=== PATIENT | male | born 1930 | race Caucasian/White ===

== ENCOUNTER → 2017-11-07 | Outpatient (CLI) | payer OTHER, MEDICARE | LOC: FIMAGING 18:20 | PROVIDERS: ATTEND Physician Assistant | DX: M48.062 Spinal stenosis, lumbar region with neurogenic claudication (principal); M48.07 Spinal stenosis, lumbosacral region; M75.111 Incomplete rotator cuff tear or rupture of right shoulder, not specified as traumatic; M75.21 Bicipital tendinitis, right shoulder; M19.011 Primary osteoarthritis, right shoulder; M85.611 Other cyst of bone, right shoulder; N32.89 Other specified disorders of bladder ==

== ENCOUNTER → 2018-03-07 | Outpatient (CLI) | payer OTHER, MEDICARE | LOC: FIMAGING 09:37 | PROVIDERS: ATTEND Physician Assistant | DX: M25.521 Pain in right elbow (principal) ==

== ENCOUNTER 2018-06-29 10:48 | Emergency (ER) | payer OTHER, MEDICARE ==
[2018-06-29 11:37] LABS: PLATELET COUNT 170 10^3/uL (150-400)
--- NOTE | 2018-06-29 11:37 | EDPHY ---
H & P Stated Complaint: upper back pain woke pt up this am now resolved Time Seen by Provider: 06/29/18 11:14 - Personal History Tetanus Vaccine Date: 2011 - Medical/Surgical History Hx Asthma: No Hx Chronic Respiratory Disease: No Hx Diabetes: No Hx Cardiac Disease: No Hx Renal Disease: No Hx Cirrhosis: No Hx Alcoholism: No Hx HIV/AIDS: No Hx Splenectomy or Spleen Trauma: No Other PMH: chronic back pain. L3-5 surgery 2007 - Social History Smoking Status: Never smoked Constitutional: Initial Vital Signs Temperature (C) 36.7 C 06/29/18 10:54 Heart Rate 64 06/29/18 10:54 Respiratory Rate 16 06/29/18 10:54 Blood Pressure 148/72 H 06/29/18 10:54 O2 Sat (%) 97 06/29/18 10:54 O2 Delivery Mode Room Air Allergies/Adverse Reactions: No Known Allergies Allergy (Unverified 08/28/12 11:55) Home Medications: Medication Instructions Recorded NK [No Known Home Meds] 06/29/18 Medical Decision Making - Diagnostics Imaging Results: Imaging Impressions Chest X-Ray 06/29/18 11:31 Impression: 1. Query airways disease. 2. Degenerative changes are seen involving the shoulders. Imaging: I viewed and interpreted images myself ED Course/Re-evaluation: CHIEF COMPLAINT: Back pain HISTORY OF PRESENT ILLNESS: The patient is an 88 y/o male with a history of chronic back pain and spinal fusions who complains of severe left lateral and upper back pain that woke him from sleep around 06:00, about 5.5 hours ago. Pain was 8/10 at onset and nothing made his it better or worse. He took 2 baby aspirins without any change. His pain slowly receded and dissipated completely about 2 hours after onset. He denies associated shortness of breath, chest pain , nausea, vomiting, or other complaints. No cardiac history. REVIEW OF SYSTEMS: A comprehensive 10 system review of systems is otherwise negative aside from elements mentioned in the history of present illness and medical decision making. PHYSICAL EXAM: HR, BP, O2 Sat, RR. Temp noted General Appearance: Alert, well hydrated, appropriate, and non-toxic appearing. Head: Atraumatic without scalp tenderness or obvious injury Eyes: Pupils equal, round, reactive to light and accommodation, EOMI, no trauma , no injection. Nose: Atraumatic, no rhinorrhea, clear. Throat: Mucus membranes moist. Neck: Supple, non-tender, no lymphadenopathy. Respiratory: No retractions, no distress, no wheezes, and no accessory muscle use. Lungs are clear to auscultation bilaterally. Cardiovascular: Regular rate and rhythm, no murmurs, rubs, or gallops. Good capillary refill all extremities. Gastrointestinal: Abdomen is soft, non-tender, non-distended, no masses, no rebound, no guarding, no peritoneal signs. Musculoskeletal: Normal active ROM of all extremities, atraumatic. Neurological: Alert, appropriate, and interactive. Nonfocal. Skin: No rashes, good turgor, no nodules on palpation. PAST MEDICAL HISTORY: Arthritis, chronic back pain PAST SURGICAL HISTORY: Lumbar fusion, cervical fusion SOCIAL HISTORY: Lives in [place]. Retired. PCP: Dr. Pickering. DIAGNOSTICS/PROCEDURES/CRITICAL CARE TIME: The 12 lead EKG was interpreted by myself. Sinus mechanism, no ischemia. See hard copy and/or "tracemaster" electronic copy for interpretation. Chest x-ray: no infiltrate, fracture DIFFERENTIAL DIAGNOSIS: The differential diagnosis for the patient's back pain included but was not limited to musculoskeletal pain, epidural abscess, herniated disk, spinal fracture, and intra-abdominal causes including urinary system. MEDICAL DECISION MAKING: This is an 88 y/o male with a history of lumbar and spinal fusions who presents after a transient 2-hour episode of left lateral and upper back pain that woke him from sleep. Pain slowly dissipated and he is now completely back to baseline. Exam is normal. Doubt cardiac etiology and suspect this is musculoskeletal in a nature. Plan for IV, labs, EKG, chest x-ray. Age-adjusted d-dimer is negative. Labs unremarkable. EKG normal. Chest x-ray shows no obvious etiology for his transient pain, though degenerative changes in shoulders noted. Reevaluated patient and discussed findings. He will be discharged home with standard care and follow up instructions. Return precautions discussed. He is comfortable with this plan. - Data Points Laboratory Results: Laboratory Results 06/29/18 11:10 06/29/18 11:10 06/29/18 06/29/18 06/29/18 11:10 11:10 11:10 WBC 6.05 10^3/uL 10^3/uL (3.80-9.50) RBC 3.69 10^6/uL L 10^6/uL (4.40-6.38) Hgb 12.6 g/dL L g/dL (13.7-17.5) Hct 36.1 % L % (40.0-51.0) MCV 97.8 fL fL (81.5-99.8) MCH 34.1 pg pg (27.9-34.1) MCHC 34.9 g/dL g/dL (32.4-36.7) RDW 12.4 % % (11.5-15.2) Plt Count 170 10^3/uL 10^3/uL (150-400) MPV 9.2 fL fL (8.7-11.7) Neut % (Auto) 67.7 % % (39.3-74.2) Lymph % (Auto) 19.2 % % (15.0-45.0) [place] % (Auto) 8.1 % % (4.5-13.0) Eos % (Auto) 4.0 % % (0.6-7.6) Baso % (Auto) 0.7 % % (0.3-1.7) Nucleat RBC Rel Count 0.0 % % (0.0-0.2) Absolute Neuts (auto) 4.10 10^3/uL 10^3/uL (1.70-6.50) Absolute Lymphs (auto) 1.16 10^3/uL 10^3/uL (1.00-3.00) Absolute Monos (auto) 0.49 10^3/uL 10^3/uL (0.30-0.80) Absolute Eos (auto) 0.24 10^3/uL 10^3/uL (0.03-0.40) Absolute Basos (auto) 0.04 10^3/uL 10^3/uL (0.02-0.10) Absolute Nucleated RBC 0.00 10^3/uL 10^3/uL (0-0.01) Immature Gran % 0.3 % % (0.0-1.1) Immature Gran # 0.02 10^3/uL 10^3/uL (0.00-0.10) D-Dimer 0.52 ug/mLFEU H ug/mLFEU (0.00-0.50) Sodium 142 mEq/L mEq/L (135-145) Potassium 3.7 mEq/L mEq/L (3.5-5.2) Chloride 105 mEq/L mEq/L (97-110) Carbon Dioxide 28 mEq/l mEq/l (22-31) Anion Gap 9 mEq/L mEq/L (6-14) BUN 27 mg/dL H mg/dL (7-23) Creatinine 1.2 mg/dL mg/dL (0.7-1.3) Estimated GFR 57 Glucose 107 mg/dL H mg/dL (70-100) Calcium 9.4 mg/dL mg/dL (8.5-10.4) Departure - Departure Disposition: Home, Routine, Self-Care Clinical Impression: Back pain Qualifiers: Back pain location: thoracic back pain Chronicity: chronic Back pain laterality : left Qualified Code(s): M54.6 - Pain in thoracic spine Condition: Good Instructions: Back Pain (ED) Additional Instructions: Follow up with your primary care provider this week for unimproved symptoms. Return to the ED for worsening of condition. Referrals: Tia Pickering MD [Primary Care Provider] - As per Instructions Report Scribed for: Leon Noel Report Scribed by: Nory Bose Date of Report: 06/29/18 Time of Report: 11:40
[2018-06-29 13:11] VITALS: BP 171/104
--- NOTE | 2018-06-29 14:18 | CPEKG ---
Test Reason : OPEN Blood Pressure : / mmHG Vent. Rate : 060 BPM Atrial Rate : 060 BPM P-R Int : 165 ms QRS Dur : 109 ms QT Int : 409 ms P-R-T Axes : 047 041 039 degrees QTc Int : 409 ms Sinus rhythm Confirmed by Leon Noel ([id number]) on 06/29/2018 2:18:02 PM Referred By: Confirmed By:Leon Noel
== END 2018-06-29 13:11 | disposition home or self-care (01) ==
DX: M54.6 Pain in thoracic spine (principal); G89.29 Other chronic pain; M19.012 Primary osteoarthritis, left shoulder; M19.011 Primary osteoarthritis, right shoulder; Z98.1 Arthrodesis status

== ENCOUNTER → 2018-11-02 | Outpatient (CLI) | payer OTHER, MEDICARE | LOC: FIMAGING 10:53 | PROVIDERS: ATTEND Physician Assistant | DX: G31.9 Degenerative disease of nervous system, unspecified (principal); R90.82 White matter disease, unspecified; R41.81 Age-related cognitive decline | CPT/HCPCS: 70551-PN ==

== ENCOUNTER 2018-11-16 10:47 | Emergency (ER) | payer OTHER, MEDICARE ==
[2018-11-16] MEDS ORDERED: FLUORESCEIN SODIUM 1 MG STRIP OP ONE (10:59)
[2018-11-16] MEDS ORDERED: PROPARACAINE 0.5% 15 ML OPHT DROP ONE (11:00)
--- NOTE | 2018-11-16 11:48 | EDPHY ---
General - History Smoking Status: Never smoked Time Seen by Provider: 11/16/18 11:01 Narrative: CLINICAL IMPRESSION: Dizziness, episodic lightheadedness ASSESSMENT/PLAN: 88-year-old male presents to the emergency department with approximately 3 hr of reported dizziness, episodic lightheadedness, and unsteadiness on his feet. Patient has been taking 2 ophthalmic eyedrops for an upcoming cataract surgery, states he may have accidentally over used the drops and believes his symptoms are due to this. He has no associated headache, vertigo, acute vision changes or eye pain, hearing changes, unilateral weakness, word-finding difficulties or slurred speech. NIH score of 0, no focal neuro deficits. No ataxia appreciated on ambulation. I have explained to the patient that I do not believe there is enough systemic absorption of his eyedrops to cause such symptoms and this was confirmed with pharmacy and on-call Ophthalmology. I have expressed my concern that his dizziness may be unrelated to his eyedrops and that I cannot further evaluate this without additional workup to include but not limited to EKG, cardiac enzymes, laboratory evaluation, chest x-ray, and CT scan with possible CT angiogram. Patient states "it is a waste of time for me to be evaluated because I do not believe this is my heart, a stroke or TIA". I have explained to the patient that should his symptoms be consistent with a TIA this may place him at risk for additional TIA's or CVA and that it may be fatal. He is also aware that I cannot rule out cardiovascular causes as a source of his dizziness without workup. Patient continues to refuse further workup in the ED. I have spoken with the on-call mechanical design engineer facilities with Dr. Bender office and patient has an appointment there tomorrow at 11:00 a.m.. I requested he continue his antibiotic drops as recommended by mechanical design engineer facilities, and request additional refills at his appointment tomorrow. Low threshold for return to ED sooner as discussed in person with the patient and his son and discharge papers. Case reviewed with Dr. Frost. DIFFERENTIAL DX: Dizziness including but not limited to peripheral and central causes of vertigo , orthostatic causes including dehydration, and blood loss. ED PROCEDURES: See lab and/or imaging results below ED COURSE: 11:25 a.m.: Case discussed with Dr. Frost. I also spoke with Ophthalmology on -call for [facility]. Patient is convinced that his dizziness and balance issues are secondary to using too many eyedrops. He was reassured that the systemic amount of eyedrops is minimal and that this is very unlikely side effect. Ophthalmology agrees. They did however recommend the patient continue the eyedrops up until surgery and discuss refills with Dr. Bender. Patient is refusing additional workup for dizziness and lightheadedness including CT, EKG, cardiac enzymes, and lab work. Had a long discussion with the patient and his son regarding differential diagnosis for dizziness as listed above. I explained that should this have been a mini stroke or other cardiac abnormality I am unable to further characterize or diagnosis without additional workup. Patient continues to decline. He will follow up tomorrow with his mechanical design engineer facilities for preop appointment at 11:00 a.m.. CHIEF COMPLAINT: Dizziness, episodic lightheadedness, questionable overuse of eyedrops HPI: 88-year-old male who appears younger than stated age presents to the emergency department with complaints of 3 hr of dizziness, feeling off balance, feeling as though "I was walking like a snake this morning", and lightheaded. Patient reports symptoms began 830 when he was trying to make breakfast. He has been taking ketorolac and gatifloxacin ophthalmic drops for upcoming cataract surgery in [address] Bender. Patient admits that he has not been effective at getting the drops into his eyes and thinks he may have "over use the drops". He brings bottles with him which do still have fluid in them. He has no complaints of vision loss, eye pain, discharge, redness. He reports no headache, vertigo, nausea or vomiting, neck pain, chest pain, shortness of breath abdominal pain. He has not been ill recently. He reports he had MRI of his brain approximately 3 weeks ago due to cognitive changes and was told " there were changes due to age but nothing acute". He has an appointment this week with Neurology. No reports of prior TIA or CVA. No reported cardiovascular disease. Patient normally walks without a cane or walker and his son who is with him reports he was acting completely normal on Saturday at the last time his son spent time with him. Patient states that he only feels dizzy when he stands up and tries to walk. ED PROCEDURES: See lab and/or imaging results below ED COURSE: 11:25 a.m.: Discussed with foot tells pharmacist. She does not feel patient has overuse of these drops would cause any systemic dizziness or balance issues. PAST MEDICAL HISTORY: Chronic back pain See nurse/triage notes for additional history if applicable Pertinent Past Surgical History: Back surgery Family History: Noncontributory Social History: Nonsmoker REVIEW OF SYSTEMS: All other systems negative Constitutional: No fever, no chills, appetite change. Eyes: No discharge, vision change ENT: No sore throat, congestion, ear pain. Cardiovascular: No chest pain, no palpitations. Respiratory: No cough, no shortness of breath. Gastrointestinal: No abdominal pain, no vomiting, diarrhea. Genitourinary: No hematuria, dysuria, flank pain, pelvic pain Musculoskeletal: No back pain, joint swelling, joint pain, myalgias. Skin: No rashes, color change. Neurological: No headache, dizziness, weakness. PHYSICAL EXAM: General Appearance: Alert, oriented, appropriate, cooperative, appears younger than stated age NAD, well hydrated, non-toxic appearing, hypertensive, no hypoxia. HEENT: TMs are clear bilaterally no perforation or FB, no injection, no evidence of serous or mucopurulent otitis. Oropharynx clear is no erythema or exudates, no tonsillar hypertrophy or asymmetry. Dentition without abnormality. Eyes: PERRLA, no acute vision change, nystagmus, swelling, discharge, pain or photosensitivity. Conjunctiva pink, no pallor or injection. No discharge from medial or lateral canthus Neck: Supple, nontender, no lymphadenopathy, no midline pain, FROM, no meningismus. No carotid bruits auscultated Respiratory: There are no retractions, lungs are clear to auscultation. Cardiac: Regular rate and rhythm, no murmurs or gallops. Neurological: Alert and oriented x 3, CN 2-12 grossly intact, normal gait no ataxia, DTR's intact, normal sensation and strength. NIH score of 0 Musculoskeletal: Extremities are symmetrical, full range of motion, no tenderness, deformity, swelling, or erythema. Psychiatric: Patient is oriented X 3, there is no agitation. MEDICAL DECISION MAKING: Patient was seen independently. Secondary supervising physician at time of evaluation was Dr. Frost. Diagnosis: Dizziness, episodic lightheadedness . New, requires workup Summary: See Assessment and Plan for summary of ED visit Discussed patient with another provider: On-call ophthalmology, Dr. Frost (Joaquin Crowley) Medical Decision Making: PHYSICIAN DOCUMENTATION: The patient was evaluated and managed by the Physician Airport Representative. My co- signature indicates that I have reviewed this chart and I agree with the findings and plan of care as documented. I am the secondary supervising physician. (Ty Frost) - Objective Vital Signs: Initial Vital Signs Temperature (C) 36.6 C 11/16/18 10:52 Heart Rate 60 11/16/18 10:52 Respiratory Rate 18 11/16/18 10:52 Blood Pressure 155/88 H 11/16/18 10:52 O2 Sat (%) 95 11/16/18 10:52 O2 Delivery Mode Room Air Allergies/Adverse Reactions: No Known Allergies Allergy (Verified 11/16/18 10:48) Home Medications: Medication Instructions Recorded Gatifloxacin 0.5% 11/16/18 Ketorolac 0.5% 11/16/18 Departure - Departure Disposition: Home, Routine, Self-Care Clinical Impression: Dizziness Condition: Good Instructions: Lightheadedness (ED), Dizziness (ED) Additional Instructions: DISCHARGE INSTRUCTIONS FROM YOUR DOCTOR Thank you for visiting our emergency department today. You were treated by a physician certified surgical tech/first assistant today and your case was reviewed with our ED Attending physician. Please keep in mind that discharge from the emergency department does not mean that there is nothing wrong - it simply means that we have not identified an emergency condition that requires further evaluation or treatment in the hospital. You should always plan to follow up with primary care for re- evaluation of your condition in the next 2-3 days. If you have been referred to a specialist, please call as soon as possible (today or tomorrow) to schedule your follow up appointment at the appropriate time. I DISCUSSED THE USE OF EYEDROPS WITH OUR PHARMACIST AND ON-CALL OPHTHALMOLOGY. NEITHER OF THEM FEEL THAT OVERUSE OF YOUR DROPS COULD HAVE CAUSED YOUR DIZZINESS. WE DISCUSSED ADDITIONAL EVALUATION FOR DIZZINESS INCLUDING EKG, CARDIAC ENZYMES, LABS, X-RAYS AND CT SCAN. YOU HAVE DECLINED THIS TODAY. PLEASE KEEP YOUR APPOINTMENT WITH DR. BENDER TOMORROW AT 11:00 A.M.. OPHTHALMOLOGY TODAY HAS REQUESTED THAT YOU CONTINUE EYEDROPS UNTIL SURGERY. YOU CAN ASK FOR REFILLS TOMORROW. PLEASE RETURN TO THE EMERGENCY DEPARTMENT IMMEDIATELY FOR WORSENING OR SEVERE DIZZINESS, ALTERED MENTAL STATUS, TROUBLE WITH WORD FINDING, SLURRED SPEECH, TROUBLE WALKING, SEVERE HEADACHE, ALTERED MENTAL STATUS OR ANY OTHER CONCERNS. People present with illnesses and injuries in different ways, and it is always possible that we have missed something. You may always return for re-evaluation if symptoms worsen or if they are not improving or if you develop new/different symptoms. Again, thank you for choosing our emergency department. We hope that you feel better. Referrals: NONE *PRIMARY CARE P,. [Primary Care Provider] - As per Instructions Jon Bender MD [Medical Doctor] - 1 day without fail
[2018-11-16 12:02] VITALS: BP 146/82
== END 2018-11-16 12:02 | disposition home or self-care (01) ==
DX: R42 Dizziness and giddiness (principal); G31.9 Degenerative disease of nervous system, unspecified; R90.82 White matter disease, unspecified; R41.81 Age-related cognitive decline

== ENCOUNTER → 2018-12-10 | Outpatient (CLI) | payer OTHER, MEDICARE | LOC: FIMAGING 07:54 | PROVIDERS: ATTEND Psychiatry & Neurology Neurology | DX: H02.402 Unspecified ptosis of left eyelid (principal) | CPT/HCPCS: 82607-90 ==